=== PATIENT | male | born 1950 | race Caucasian/White ===

== ENCOUNTER → 2016-08-28 | Outpatient (CLI) | payer OTHER | LOC: BHCLAF 10:30 | PROVIDERS: ATTEND Internal Medicine Cardiovascular Disease | DX: I25.10 Atherosclerotic heart disease of native coronary artery without angina pectoris (principal); E78.5 Hyperlipidemia, unspecified; Z95.5 Presence of coronary angioplasty implant and graft | CPT/HCPCS: 93005-PO ==

== ENCOUNTER → 2017-03-21 | Outpatient (CLI) | payer OTHER | LOC: BHFA 10:00 | PROVIDERS: ATTEND Internal Medicine Cardiovascular Disease | DX: R07.9 Chest pain, unspecified (principal); R06.02 Shortness of breath ==

== ENCOUNTER → 2017-06-24 | Outpatient (CLI) | payer OTHER | LOC: BHFA 11:00 | PROVIDERS: ATTEND Internal Medicine Cardiovascular Disease | DX: I47.1 Supraventricular tachycardia (principal) ==

== ENCOUNTER 2017-08-07 21:55 | Observation (INO) | payer OTHER ==
[2017-08-07] MEDS ORDERED: methylPREDNISolone SOD SUCC 125 MG/2 ML VIAL IVP ONE (22:10)
[2017-08-07] MEDS ORDERED: RANITIDINE 50 MG/2 ML VIAL IVP ONE (22:10)
--- NOTE | 2017-08-07 23:10 | EDPHY ---
H & P Smoking Status: Never smoked Time Seen by Provider: 08/07/17 22:09 HPI/ROS: 66 yo M presents c/o facial swelling, hives that began after dinner. He states he went to the [facility], ran 3 miles, went swimming, then went home had a protein shake and veggie burger and then began to have this reaction-facial swelling and rash. He states he had an allergic reaction 25 years ago, similar to this, but has no known allergies. He is not on Lisinopril. Review of systems As per HPI General no fever no chills no weakness HEENT no eye pain no eye discharge. No eye redness, no sore throat Respiratory no cough, no shortness of breath Cardiac no chest pain, no peripheral edema GI no abdominal pain, no diarrhea, no constipation, no nausea, no vomiting no flank pain, no hematuria, no dysuria Musculoskeletal no myalgias, no joint pain Heme no easy bruising, no easy bleeding Endo no polyuria, no polydipsia Skin positive rashes, positive pruritus Neuro no syncope, no dizziness, no headaches Psych is no suicidal ideation, no homicidal ideation (Mackenzie Peralta) Past Medical/Surgical History: Myocardial infarction 2012 (Mackenzie Peralta) The patient had a cardiac stent placed in [place] in 2012. He is not certain which vessel this is placed in. He had an episode of SVT approximately a month ago and had an outpatient Holter monitor that was unremarkable thereafter with spontaneous resolution of the SVT per his report. He had a cardiac stress test within last year that was normal. (Jitendra Marie) Social History: Denies alcohol or drug use (Mackenzie Peralta) This patient ran 3 miles this afternoon with swimming. He did not notice any chest pain or other ischemic symptoms during that time. He denies any drug use. (Jitendra Marie) Physical Exam: 66-year-old male alert and oriented, moderate distress secondary to facial swelling and rash Atraumatic normocephalic Oropharynx Positive uvular edema and erythema, no tongue swelling For positive lip swelling Positive facial swelling primarily to eyelids and lips Neck supple no stridor Lungs clear to auscultation bilaterally Heart regular rate and rhythm Abdomen nondistended bowel sounds present Extremities no cyanosis clubbing or edema Skin diffuse erythematous rash blanching (Mackenzie Peralta) Constitutional: Initial Vital Signs Temperature (C) 36.7 C 08/07/17 22:00 Heart Rate 68 08/07/17 22:00 Respiratory Rate 18 08/07/17 22:00 Blood Pressure 136/80 H 08/07/17 22:00 O2 Sat (%) 90 L 08/07/17 22:00 O2 Delivery Mode Room Air O2 (L/minute) 2 Allergies/Adverse Reactions: No Known Allergies Allergy (Unverified 04/14/14 11:43) Home Medications: Medication Instructions Recorded Aspirin [Aspirin 325 mg (OTC)] 325 mg PO DAILY 04/14/14 Ibuprofen [Motrin (OTC)] 200 mg PO DAILY 04/14/14 Multivitamins [Tab-A-Xin] 1 each PO DAILY 04/14/14 Gilman-3 Fatty Acids/Fish Oil 1 each PO DAILY 04/14/14 [Gilman 3 1,000 mg Softgel] Vitamin B Complex [B Complex] 1 each PO DAILY 04/14/14 Medical Decision Making - Diagnostics EKG Interpretation: 12 lead EKG performed at 12:14 a.m. Indication dyspnea, soft rales, history of prior SD, rule out ischemia Since rhythm at 66 Intervals: P R of 180, QRS of 130, QTC of 453 [place]: P of 61, QRS of -38, T of 16 ST segments are notable for T-wave inversions in leads V2 V3 and V4. This finding is new when compared to an EKG dated 12/16/2015 Overall assessment sinus rhythm, right bundle branch block, possible anterior ischemia Repeat EKG was performed at 12:54 a.m. After nitropaste evaluate for interval change. Sinus rhythm at 76 Intervals unchanged Dunbar unchanged ST segments: ST depression in lead V4 resolved. T-wave inversions in V2 and V3 persist. Overall assessment: Subtle potential dynamic change in V4 with nitropaste.- anterior T-wave inversions persist (Jitendra Marie) ED Course/Re-evaluation: Patient presented with acute allergic reaction to unknown substance. No known allergies Given epi sees 0.3 mg IM, Solu-Medrol 125 mg IV, famotidine 20 mg IV, diphenhydramine 50 mg IV Impression Acute allergic reaction Plan Care turned over to oncoming doctor at shift change. For further observation and treatment plan.. (Mackenzie Peralta) Shortly after 2300 at shift change examined this patient and he had persistent mild uvular edema. Use a Mallampati 3 airway at that time. While he initially did feel he had tongue swelling and now admits that he felt he had a slightly "thick tongue". On my examination at 2300 he has a He felt subjective improvement in terms of resolution of his itching and erythema to the skin. He also reported that he had been mild dyspnea earlier that seems improved. I explained that we will be observing him for period of time due to his allergic symptoms an initial O2 sat of 90%. I reviewed Dr. conner piece documentation and received verbal report from her and noted the medications the patient received. He was taken off of supplemental O2 shortly after 2300 was initially satting 94 % room air. At midnight he satting 92%. Examination reveals no wheezing. He has soft rales at the bases that clear with deep breaths. Will treat him of the Xopenex neb and continue further observation. He denies any acute complaints at midnight. Xopenex neb with no change in his O2 sat. He is placed on supplemental O2 2 L nasal cannula bring his oxygen saturation to 96% on room air Given history of SD with soft rales mild dyspnea EKGs checked at 0014 with anterior T-wave inversions concerning for ischemia. Patient does not have chest pain. However this is a new change when compared to an EKG dated 2015. Given this finding, patient is treated with aspirin, 0.5 in nitropaste repeat EKG, chest x-ray with plan for admission for observation given ongoing angioedema, mild hypoxia and new EKG changes after allergic reaction. Concerned the patient may be having LAD ischemia. Labs are sent with plan for admission and cardiology consult. Studies: Labs-CBC is normal, metabolic panel is normal exception of mild hyperglycemia consistent with steroids and stress response, troponin is normal, BNP is normal for age. I spoke with Dr. Knight, cardiology who agrees with admission plan will see the patient in consult in the morning. He does not recommend any additional treatment at this time beyond the current O2 and nitroglycerin. Patient is initially declining admission upon my return to the room. I had an extend conversation with him regarding my concerns I printed and reviewed the patient's cardiac catheterization results from 12/16/2015 pointing out his 30-40 % stent restenosis in the LAD at that time explaining that with coronary disease the potential for plaque rupture with thrombus that can result in acute disease after stressful events or at any point. The Patient is frustrated that he has had good outpatient Cardiac Care and a healthy lifestyle and that he could have an acute cardiac condition at this time. We tried contacting his girlfriend, an RN who is currently out of town by phone, but he phone is off at this time. He declines contacting any other members of family or friends for further conversation regarding the plan for admission. At 1:35 a.m. The patient is still trying to contact his girlfriend via other means. On 2 L nasal cannula he was satting 94%, increased to 3 L satting 96% room air with no active cardiac symptoms. Has 0.5 in nitropaste and is comfortable on supplemental O2 at this time. The patient finally accepts admission at 1:50 a.m. But declines EMS transport. I petitioned at some length to except EMS transport explaining the benefits. Patient signs an AMA form understand the risk of worsening of his condition, cardiac arrest and even going by private vehicle. Explain the IV Benadryl precludes and driving himself but will attempt to arrange a taxi ride with supplemental O2 to the hospital. On examination at this time the patient has resolution of his uvular edema. Tongue swelling also appears improved. Still has mild persistent angioedema of the lips and eyelids. Bedside critical care time: 20 min Bedside counseling regarding his medical condition time-over 60 min (Jitendra Marie) - Data Points Laboratory Results: Laboratory Results 08/07/17 22:12 08/07/17 22:12 08/07/17 08/07/17 22:12 22:12 WBC 8.89 10^3/uL 10^3/uL (3.80-9.50) RBC 5.17 10^6/uL 10^6/uL (4.40-6.38) Hgb 16.9 g/dL g/dL (13.7-17.5) Hct 46.5 % % (40.0-51.0) MCV 89.9 fL fL (81.5-99.8) MCH 32.7 pg pg (27.9-34.1) MCHC 36.3 g/dL g/dL (32.4-36.7) RDW 12.1 % % (11.5-15.2) Plt Count 278 10^3/uL 10^3/uL (150-400) MPV 9.9 fL fL (8.7-11.7) Neut % (Auto) 53.3 % % (39.3-74.2) Lymph % (Auto) 37.1 % % (15.0-45.0) [place] % (Auto) 4.4 % L % (4.5-13.0) Eos % (Auto) 4.7 % % (0.6-7.6) Baso % (Auto) 0.3 % % (0.3-1.7) Nucleat RBC Rel Count 0.0 % % (0.0-0.2) Absolute Neuts (auto) 4.73 10^3/uL 10^3/uL (1.70-6.50) Absolute Lymphs (auto) 3.30 10^3/uL H 10^3/uL (1.00-3.00) Absolute Monos (auto) 0.39 10^3/uL 10^3/uL (0.30-0.80) Absolute Eos (auto) 0.42 10^3/uL H 10^3/uL (0.03-0.40) Absolute Basos (auto) 0.03 10^3/uL 10^3/uL (0.02-0.10) Absolute Nucleated RBC 0.00 10^3/uL 10^3/uL (0-0.01) Immature Gran % 0.2 % % (0.0-1.1) Immature Gran # 0.02 10^3/uL 10^3/uL (0.00-0.10) Sodium 137 mEq/L mEq/L (135-145) Potassium 4.5 mEq/L mEq/L (3.5-5.2) Chloride 103 mEq/L mEq/L (97-110) Carbon Dioxide 22 mEq/l mEq/l (22-31) Anion Gap 12 mEq/L mEq/L (8-16) BUN 26 mg/dL H mg/dL (7-23) Creatinine 0.7 mg/dL mg/dL (0.7-1.3) Estimated GFR > 60 Glucose 145 mg/dL H mg/dL (70-100) Calcium 9.5 mg/dL mg/dL (8.5-10.4) Troponin I 0.025 ng/mL ng/mL (0.000-0.034) NT-Pro-B Natriuret Pep 130 pg/mL H pg/mL (0-125) Medications Given: Discontinued Medications Aspirin (Aspirin) 324 mg PO EDNOW ONE Stop: 08/08/17 00:18 Last Admin: 08/08/17 00:24 Dose: 324 mg Diphenhydramine HCl (Benadryl Injection) 50 mg IVP EDNOW ONE Stop: 08/07/17 22:10 Last Admin: 08/07/17 22:12 Dose: 50 mg Epinephrine HCl (Epinephrine) 0.3 mg IM EDNOW ONE Stop: 08/07/17 22:12 Last Admin: 08/07/17 22:12 Dose: 0.3 mg Sodium Chloride (Ns) 1,000 mls @ 0 mls/hr IV EDNOW ONE; Wide Open PRN Reason: Protocol Stop: 08/08/17 01:03 Last Admin: 08/08/17 00:32 Dose: 500 mls Levalbuterol (Xopenex 1.25mg Neb) 1.25 mg IH EDNOW ONE Stop: 08/07/17 23:56 Last Admin: 08/08/17 00:07 Dose: 1.25 mg Methylprednisolone Sodium Succinate (Solu-Medrol) 125 mg IVP EDNOW ONE Stop: 08/07/17 22:11 Last Admin: 08/07/17 22:12 Dose: 125 mg Nitroglycerin (Nitro-Bid 2%) 0.5 inch TP EDNOW ONE Stop: 08/08/17 00:27 Last Admin: 08/08/17 00:35 Dose: 0.5 inch Ranitidine HCl (Zantac) 50 mg IVP EDNOW ONE Stop: 08/07/17 22:11 Last Admin: 08/07/17 22:12 Dose: 50 mg Departure - Departure Disposition: [facility] Acute Clinical Impression: ST segment changes on electrocardiogram, History of SD (myocardial infarction) Allergic reaction Qualifiers: Encounter type: initial encounter Qualified Code(s): T78.40XA - Allergy, unspecified, initial encounter Angioedema Qualifiers: Encounter type: initial encounter Qualified Code(s): T78.3XXA - Angioneurotic edema, initial encounter Condition: Fair
[2017-08-07] MEDS ORDERED: LEVALBUTEROL 1.25 MG/3 ML DEYVIAL IH ONE (23:55)
--- NOTE | 2017-08-08 00:16 | CPEKG ---
Heart Rate: 66 RR Interval: 909 P-R Interval: 180 QRSD Interval: 138 QT Interval: 432 QTC Interval: 453 P [place]: 61 QRS [place]: -38 T Wave [place]: 16 EKG Severity - ABNORMAL ECG - EKG Impression: SINUS RHYTHM EKG Impression: RIGHT BUNDLE BRANCH BLOCK EKG Impression: CONSIDER ANTERIOR INFARCT Electronically Signed By: Jitendra Marie 08-Aug-2017 01:39:16
[2017-08-08] MEDS ORDERED: ASPIRIN 81 MG CHEWABLE TAB PO ONE (00:17)
[2017-08-08 00:25] LABS: PLATELET COUNT 278 10^3/uL (150-400)
[2017-08-08] MEDS ORDERED: NITROGLYCERIN 2% 1 GM PACKET TP ONE (00:26)
[2017-08-08] MEDS ORDERED: NITROGLYCERIN 2% 1 GM PACKET ONE (00:34)
--- NOTE | 2017-08-08 00:56 | CPEKG ---
Heart Rate: 76 RR Interval: 789 P-R Interval: 184 QRSD Interval: 136 QT Interval: 408 QTC Interval: 459 P [place]: 69 QRS [place]: -22 T Wave [place]: 25 EKG Severity - ABNORMAL ECG - EKG Impression: SINUS RHYTHM EKG Impression: RIGHT BUNDLE BRANCH BLOCK EKG Impression: ANTERIOR INFARCT, AGE INDETERMINATE Electronically Signed By: Jitendra Marie 08-Aug-2017 01:39:04
[2017-08-08] MEDS ORDERED: NS 1,000 ML IV ONE (01:02)
[2017-08-08] MEDS ORDERED: ACETAMINOPHEN 325 MG TAB PO PRN (03:50)
[2017-08-08] MEDS ORDERED: ONDANSETRON 4 MG/2 ML VIAL IVP PRN (03:50)
[2017-08-08] MEDS ORDERED: HYDROCODONE/APAP 5/325 TAB PO PRN (03:50)
[2017-08-08 05:06] LABS: PLATELET COUNT 208 10^3/uL (150-400)
[2017-08-08 05:20] LABS: CREATINE KINASE 36 IU/L (0-224)
--- NOTE | 2017-08-08 05:24 | GHP ---
[f rep st] HISTORY AND PHYSICAL DATE OF ADMISSION: 08/08/2017 The patient's PCP is unlisted. SOURCE: Patient provides history, appears reliable. EMR was reviewed and case discussed with ED pro vider before transfer from [facility]. CHIEF COMPLAINT: Facial swelling and dyspnea. HISTORY OF PRESENT ILLNESS: This is a very pleasant 66-year-old gentleman with past medical history significant for coronary artery disease with last known cath in November 2015, noting left LAD stenting with aikz-[id number] stent restenoses and 50% mid RCA lesion unstable from 2013, who is on aspirin alone, who presents to the emergency department at [facility] this evening with complai nts of sudden onset of facial and tongue swelling along with diffuse hives following a dinner meal. The patient since his [place] has been quite active. He runs and he swims, which he did this evening. He came home and he made a protein shake, which included usual protein powder he is familiar with, but a new type of soy milk, as well as a tropical frozen fruit mix, which is new. The patient is unsure of any specific triggers for his reaction. He did experience similar episode 20 years ago. The alexandr ent states that he has had majority of the contents of his protein shake individually in the past wit hout any issues and has had soy products previously as he is a vegetarian. Patient during this episo de also reported a little bit of dyspnea with sensation of tightness or swelling in his left neck wit hout radiation down his arms. Patient without any cough, fevers, chills, and he denies any chest regina n. REVIEW OF SYSTEMS: Negative, except as noted above. ALLERGIES: No known drug allergies. HOME MEDICATIONS: Aspirin and fish oil. PAST MEDICAL HISTORY: Significant for CAD, KS on August 22, 2012, status post stenting in the LAD. He a gain underwent cardiac cath with stable findings in 2013 and 2015, history of angioedema 20 years ago . History of SVT resolved several years ago, status post a Holter monitor that was negative. PAST SURGICAL HISTORY: Significant for multiple cardiac caths. FAMILY HISTORY: Father , age 82 from an [place]. SOCIAL HISTORY: Patient does not smoke, drink, or do drugs. CODE STATUS: Full. Patient does not want any prolonged life support for more than 5 days if ever ne eded. PHYSICAL EXAMINATION: VITAL SIGNS: Upon arrival to [facility], blood pressure 136/80, heart rate is 68, O2 saturation is 90% on 4 L by nasal cannula, temperature 36.7. Vitals currently, blood pressure 133/88, heart rate 83, respiratory rate 16, O2 saturation 96% on 2 L by nasal cannula , temperature 36.6. GENERAL: No acute distress, pleasant adult gentleman is lying quietly in bed. HEAD: Normocephalic, atraumatic. EYES: Extraocular muscles are intact. Pupils equal, round, react to light bilaterally and symmetric. No scleral icterus or conjunctival injection. ENT: Mucous mem branes appear moist. Patient's tongue is slightly enlarged. No apparent oropharyngeal erythema or e xudates. NECK: Supple. Trachea midline. CV: Regular rate and rhythm. No murmurs, rubs, or rose ps appreciated. RESPIRATORY: Lungs are clear to auscultation bilaterally, but diminished bibasilarl y, right greater than left. No wheezes, rales, or rhonchi appreciated. Unlabored breathing. ABDOME N: Obese soft, nontender to palpation. No rebound, guarding, or masses appreciated. : No suprap ubic tenderness to palpation. No Mayfield catheter in place. MUSCULOSKELETAL: The patient is lying qu ietly in bed. He is able to move all his extremities with grossly normal muscle strength. NEURO: G rossly nonfocal. No facial drooping. Moves all extremities. PSYCH: Thought process content and qu estions are appropriate. Affect slightly flat but patient is cooperative and pleasant. LABORATORY STUDIES: WBC is 8.89, H and H is 16.9, 46.5, MCV of 89.9, platelet count is 278. Sodium is 137, potassium 4.5, chloride 103, CO2 is 22, anion gap 12, BUN is 26, creatinine 0.7, GFR greater than 60, glucose 145, calcium 9.5. Troponin 0.025. BTNP is 130. EKG initially in the ED showing sinus rhythm in the 60s with a right bundle branch block, which persi sts from previous EKGs. The patient does have Q-waves in the anterior leads of V3, V4. ST depressio n is noted in the anteroseptal leads, Q-wave present in inferior leads. Repeat EKG: Normal sinus rh ythm at 76, right bundle branch block. Q-waves in the anterior leads. ST depression persistent ante roseptal leads. QTc is 459. Compared to EKG from 2006: ST depressions were not present previously. All other changes noted appe ar stable. Chest x-ray image reviewed myself, report pending. Patient does appear to have a little bit of edema . There is no focal consolidation, edema increased on the right compared to the left. ASSESSMENT AND PLAN: Pleasant 66-year-old gentleman with past medical history for coronary artery di sease, who presents to the emergency department with complaints of facial swelling, angioedema and no sayda to have EKG changes. 1. Angioedema status post epinephrine, famotidine, Benadryl, and Solu-Medrol in the emergency depart ment. Patient reports that his symptoms are significantly improved and his hives have also resolved. Will monitor patient closely. Encourage him to review the ingredients listed in the previous foods that he consumed the day previously. The patient may require discharge with EpiPen and further guid ance on angioedema and treatment before arriving to the emergency room. 2. EKG changes. Patient without any complaints of currently chest pain, but he did experience some dyspnea. He does have some signs of pulmonary edema and a history of coronary artery disease with pr eviously [id number] restenosis of his left anterior descending stent several years ago. The pa isabel's troponin is in the negative range, but it is not 0. Will trend cardiac enzymes. The patient did have nitroglycerin paste placed in the emergency department and Cardiology was consulted, and wi ll plan to evaluate the patient later this morning. The patient is currently denying any chest pain. 3. Coronary artery disease. Patient is only on aspirin. We will continue. The patient's current b lood pressure is acceptable for age. We will continue to monitor at this time and await Cardiology r ecommendations. 4. Fluid, electrolyte, nutrition. Electrolytes monitored. Did not require replacement at this time . The patient did receive intravenous fluids in the emergency department. We will hold off on addit ional supplementation given his evidence of pulmonary edema. 5. Prophylaxis sequential compression devices. Anticoagulation if patient should stay additional da y. Otherwise, will encourage mobilization. 6. Code status is full. The patient does not want more than 5 days of life support. DISPOSITION: Patient admitted to observation on NAGA for close monitoring in setting of angioedema an d EKG changes. /[id number]/MODL
[2017-08-08 11:47] VITALS: BP 117/78
--- NOTE | 2017-08-08 11:50 | GCON ---
[f rep st] CONSULTATION PULMONARY CRITICAL CARE CONSULT DATE OF CONSULTATION: 08/08/2017 HISTORY OF PRESENT ILLNESS: This patient is a 66-year-old male who has a history of coronary disease and an episode of angioedema some 20 years ago, which he was unable to recall much detail, who was a dmitted yesterday with sudden onset of hives and swelling of his face and tongue, was brought to the emergency department where he received epinephrine, Pepcid, Benadryl, and Solu-Medrol, all resulting in substantial improvement of both hives and symptoms. This morning, he is back to his baseline and feels fairly well. He is unable to identify the exact trigger. He did say he was using a protein sh tiffany that involved some additional fruits as the only thing that has been new. He denies any known pe anut allergies. In the past, he has had hayfever and worsening allergies as a kid, but has not seen an applied research director recently since he has had no difficulty other than these episodes of angioedema. He is not on an IFEANYI inhibitor. REVIEW OF SYSTEMS: Otherwise, review of systems negative. PAST MEDICAL HISTORY: Includes: 1. Coronary disease. 2. Myocardial infarction. 3. Angioedema. 4. SVT. SURGICAL HISTORY: None. SOCIAL HISTORY: Nonsmoker. No alcohol or IV drug use. He is a vegetarian. FAMILY HISTORY: Includes coronary artery disease. CURRENT MEDICATIONS: Include Tylenol, [place], Benadryl, morphine, Zofran, all p.r.n. PHYSICAL EXAMINATION: VITAL SIGNS: He was afebrile. Blood pressure 136/78. Heart rate 80, sinus r hythm. Respirations 14. Oxygen saturation 93% on room air. GENERAL: He is a pleasant man in no ap parent distress. Able to speak in full sentences without using accessory muscles for breathing. RICHARD NT: Pupils are equally round and reactive to light, nonicteric and noninjected. Mucous membranes mo ist without erythema or exudate. Normal-sized tongue. No stridor. NECK: Supple, without adenopath y or jugular vein distention. LUNGS: Breath sounds clear to auscultation bilaterally without wheeze , rubs, or rales. HEART: Regular rate and rhythm without murmurs, rubs, gallops. ABDOMEN: Soft, n ontender, nondistended, without hepatosplenomegaly. EXTREMITIES: Show no clubbing, cyanosis, or adi ma. NEUROLOGICAL: Exam is normal, including deep tendon reflexes and cranial nerves. SKIN: Warm a nd dry without evidence of rash. OBJECTIVE DATA: Includes a white count of 7.8, hematocrit 42, platelets 208. Basic metabolic panel yesterday was normal. Hemoglobin A1c is pending at this time. CK was 36. BNP was only 130. Tropon in negative x2. LDL 89. ASSESSMENT/PLAN: Sounds like a fairly significant allergic reaction that resulted in ICU stay. I bentley d a detailed discussion with the patient about this issue, recognizing the severity of this and how h is outcome could have been substantially worse. I think that he is stable for discharge today, but I urged him to see an applied research director after discharge, but he was hesitant to do so, citing that he thought allergies were only a problem for pediatrics, so it is unclear to me whether he will follow up on natalia t advice. In either case, his cardiopulmonary status appears to be quite stable, and I think he is o dora for discharge. /[id number]/MODL
--- NOTE | 2017-08-08 12:41 | ECHO ---
[email or web address] [address] Main: [phone] Fax: Transthoracic Echocardiogram Name: RICHARD ORTIZ MR#: [id number] Study Date: 08/08/2017 Study Time: 11:57 AM Date of : 1950 Age: 66 year(s) Height: ( ) Weight: ( ) BSA: Gender: Male Examination: Echo Indication: Eval LV function Image Quality: Contrast: Requested by: Ree Linda BP: 117 mmHg/78 mmHg Heart Rate: Rhythm: Indication: Eval LV function Procedure Staff Director [employer]: Hillary Lobo RDCS Reading Physician: Lon Mahoney MD Requesting Provider: Conclusions: Normal size left ventricle. Global hypercontractility of the left ventricle. EF is 75 %. Mild mitral valve leaflet calcification is present. Mild mitral valve regurgitation is present. 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 There is no aortic stenosis or insufficiency. No old studies for comparison. Measurements: Chambers Valvular Assessment AV/MV Valvular Assessment TV/PV Normal Normal Normal Name Value Range Name Value Range Name Value Range Ao Maya (MM): 3.5 cm (2.2 cm-3.7 AV meanP mmHg ( - ) TR Vmax: 2.10 mm/s ( - ) cm) MV E Vmax: 0.65 m/s ( - ) TR PGmax: 18 mmHg ( - ) IVSd (2D): 0.9 cm (0.6 cm-1.1 MV A Vmax: 0.90 m/s ( - ) syst. PAP: 23 mmHg ( - ) cm) MV E/A: 0.72 ( - ) LVDd (2D): 4.5 cm (4.2 cm-5.9 cm) LVDs (2D): 2.3 cm (2.1 cm-4 cm) LVPWd (2D): 1.0 cm (0.6 cm-1 cm) LVEF (MOD4): 75 % (>=55 %) Continued Measurements: Chambers Valvular Assessment AV/MV Valvular Assessment TV/PV Name Value Name Value Name Value LADs: 3.9 cm MV E' Septal: 0.06 m/s CVP (est.): 5 mmHg Patient: RICHARD ORTIZ Study Date: 08/08/2017 Page 1 of 2 11:57 AM LADs Lon.1 cm MV E/E' Septal: 10.50 LA Area: 19.6 cm2 MV E/E' Lateral: 8.30 Additional Vessels Name Value Ao Ascendin.5 cm Findings: Left Ventricle: Normal size left ventricle. No LV hypertrophy. Global hypercontractility of the left ventricle. EF is 75 %. No regional wall motion abnormality. Right Ventricle: Normal size right ventricle. Left Atrium: The left atrium is normal in size. Right Atrium: The right atrium is normal in size. Mitral Valve: Mild mitral valve leaflet calcification is present. Mild mitral valve regurgitation is present. 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 Tricuspid Valve: The tricuspid valve is normal in appearance and function. Pulmonic Valve: The pulmonic valve is normal in appearance and function. Trivial pulmonic valve regurgitation. Aorta: The aorta is normal. Pericardium: No pericardial effusion. (No Signature Object) Patient: RICHARD ORTIZ Study Date: 08/08/2017 Page 2 of 2 11:57 AM [id number]
--- NOTE | 2017-08-08 14:11 | GDS ---
[f rep st] DISCHARGE SUMMARY ALL DIAGNOSES: 1. Acute allergic reaction. 2. Right bundle branch block, chronic. 3. History of coronary artery disease, status post stent to his left anterior descending. HOSPITAL COURSE: 66-year-old man who was admitted with facial swelling. This quickly resolved in th e emergency department. He was admitted because of T-wave inversions on his EKG. He notably was not having any chest pain. On review this is very similar to his previous EKGs. He has a known right b undle branch block. Echocardiogram was obtained because of the concern in the emergency department; this was normal. I discussed this informally with Dr. Mahoney, who reviewed his EKGs as well as echoc ardiogram and agrees. He is discharged in stable condition. 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 /[id number]/MODL
[2017-08-10] MEDS ORDERED: methylPREDNISolone SOD SUCC 125 MG/2 ML VIAL ONE (12:08)
[2017-08-10] MEDS ORDERED: RANITIDINE 50 MG/2 ML VIAL ONE (12:08)
== END 2017-08-08 13:42 | disposition home or self-care (01) ==
LOC: CED 21:55 → CEDHOLD 08-08 00:43 → INTOOBSV 08-08 00:43 → F2N 08-08 02:49
PROVIDERS: ADMIT Family Medicine; ATTEND Student in an Organized Health Care Education/Training Program
DX: T78.3XXA Angioneurotic edema, initial encounter (principal); R94.30 Abnormal result of cardiovascular function study, unspecified; I25.2 Old myocardial infarction; I25.10 Atherosclerotic heart disease of native coronary artery without angina pectoris; Z95.5 Presence of coronary angioplasty implant and graft; Z82.49 Family history of ischemic heart disease and other diseases of the circulatory system; Z79.82 Long term (current) use of aspirin
CPT/HCPCS: 71045-PO; 80048-PO; 83880-PO; 84484-PO; 85025-PO; 96374; J0171; J1200; J2780; J2930

== ENCOUNTER → 2018-03-24 | Outpatient (CLI) | payer OTHER | LOC: BHFA 14:15 | PROVIDERS: ATTEND Physician Assistant Medical | DX: I25.10 Atherosclerotic heart disease of native coronary artery without angina pectoris (principal); E78.5 Hyperlipidemia, unspecified; I10 Essential (primary) hypertension ==

== ENCOUNTER → 2018-03-25 | Outpatient (CLI) | payer OTHER | LOC: CIMAGING 11:34 | PROVIDERS: ATTEND Internal Medicine | DX: M25.561 Pain in right knee (principal) | CPT/HCPCS: 73562-PO ==